=== PATIENT | female | born 1960 | race Caucasian/White ===

== ENCOUNTER 2025-05-20 16:38 | Emergency (ER) | payer OTHER ==
[~2025-05-20] VITALS: Ht 175.3 cm; Wt 90.7 kg
[2025-05-20 17:26] LABS: PLATELET COUNT (AUTO) 198 K/uL (150-450); RED BLOOD CELL COUNT(AUTO) 5.18 MIL/uL (4.0-5.2); RED CELL DISTRIBUTION WIDTH 14.0 % (11.5-15.0); WHITE BLOOD COUNT (AUTO) 5.7 K/uL (4.3-11.0)
[2025-05-20 17:45] LABS: CALCIUM, SERUM 9.1 mg/dL (8.5-10.1); CREATININE 0.7 mg/dL (0.6-1.3); SODIUM SERUM 140 mmol/L (136-145); UREA NITROGEN, BLOOD 13 mg/dL (7-18)
[2025-05-20 17:51] LABS: ASPARTATE AMINOTRANSFERASE 39 U/L (15-37); TOTAL PROTEIN, SERUM 7.4 g/dL (6.4-8.2)
[2025-05-20 20:27] VITALS: BP 134/77; TEMP 98.3; O2SAT 99
== END 2025-05-20 20:28 | disposition home or self-care (01) ==
LOC: ER 16:50
DX: I49.1 Atrial premature depolarization (principal); R00.2 Palpitations; Z91.0120 Allergy to eggs, unspecified
CPT/HCPCS: 36415; 71045-TC; 80048-TC; 80076-TC; 83735-TC; 84439-TC; 84443-TC; 84484-TC; 85025-TC